=== PATIENT | female | born 1940 | race Caucasian/White ===

== ENCOUNTER 2017-12-24 17:46 | Emergency (ER) | payer OTHER, BC ==
[~2017-12-24] VITALS: Ht 157.5 cm; Wt 64.9 kg
[~2017-12-24 17:46] MED LIST: ASPIRIN325 MG PO; ATENOLOL50 MG PO; ENDOCET 5-3251 EACH PO; HYDRODIURIL,O12.5 M1 PO; IBUPROFEN800 MG PO; LOPRESSOR25 MG PO; NEXIUM40 MG PO; OMEPRAZOLE20 MG PO; ZESTRIL20 MG PO; ZOCOR40 MG PO
[2017-12-24 20:10] LABS: APPEARANCE CLEAR ((CLEAR)); BILIRUBIN NEGATIVE; BLOOD NEGATIVE; COLOR STRAW ((YELLOW)); GLUCOSE (STRIP) NEGATIVE; KETONES NEGATIVE; LEUKOCYTES LARGE; NITRITE NEGATIVE; PROTEIN (STRIP) NEGATIVE; SPECIFIC GRAVITY 1.006 (1.000-1.030); UROBILINOGEN 0.2 MG/DL (0.2-1.0)
[2017-12-24 20:12] LABS: HEMATOCRIT 33.8 % (36.0-46.0); HEMOGLOBIN 11.2 G/DL (11.9-15.5); MCH 27.9 PG (29.0-34.0); MCHC 33.1 G/DL (30.0-36.0); MCV 84.1 FL (83-99); PLATELET COUNT 183 K/uL (156-360); RBC DIS.WIDTH-CV 14.1 % (11.8-14.6); RBC DIS.WIDTH-SD 43.7 % (39-53); RED BLOOD COUNT 4.02 M/uL (3.80-5.20); WHITE BLOOD COUNT 4.2 K/uL (4.1-10.2)
[2017-12-24 20:26] LABS: CHLORIDE 100 mEq/L (99-109); POTASSIUM 3.8 mEq/L (3.7-5.4); SODIUM 135 mEq/L (136-147)
[2017-12-24 20:27] LABS: GLUCOSE 88 mg/dL (70-99)
[2017-12-24 20:28] LABS: BACTERIA RARE /HPF; EPITHELIAL CELLS RARE /HPF; MUCUS TRACE /LPF; RED BLOOD CELLS 0-5 /HPF (0-5); UCUL ADDED? NO; WHITE BLOOD CELLS 0-5 /HPF (0-5)
[2017-12-24 20:31] LABS: CREATININE 0.7 mg/dL (0.6-1.3); GFR ESTIMATE (CALCULATED) > 59 mL/min/
[2017-12-24 20:32] LABS: UREA NITROGEN (BUN) 21 mg/dL (9-23)
[2017-12-24] MEDS ORDERED: ULTRACET1 TABLET PO (21:48)
[2017-12-24] MEDS ORDERED: LIDODERM 5% P1 PATCH TD (21:48)
[2017-12-24 21:57] VITALS: BP 159/73
== END 2017-12-24 21:58 | disposition home or self-care (01) ==
LOC: EME 17:46 → RME 17:46
PROVIDERS: Physician Assistant Medical
DX: S39.012A Strain of muscle, fascia and tendon of lower back, initial encounter (principal); X58.XXXA Exposure to other specified factors, initial encounter; R10.9 Unspecified abdominal pain; Z79.82 Long term (current) use of aspirin; Z87.891 Personal history of nicotine dependence; Z90.49 Acquired absence of other specified parts of digestive tract
CPT/HCPCS: 74176; 80048; 81003; 85027; 99281; 99284